=== PATIENT | male | born 1970 | race Caucasian/White ===

== ENCOUNTER 2020-07-05 00:59 | Emergency (ER) | payer OTHER, SELFPAY ==
[2020-07-05 01:00] VITALS: BP 147/101; PULSE 89; RESP 20; TEMP 35.5; O2SAT 99
--- NOTE | 2020-07-05 01:07 | ED.UPPEXIN ---
HPI - Extremity Injury (Upper) General Chief Complaint: Extremity Injury, Upper Stated Complaint: shoulder pain Time Seen by Provider: 07/05/20 01:08 Source: patient Mode of arrival: ambulatory Limitations: no limitations History of Present Illness HPI narrative: Previously well 49-year-old man comes in today complaining of lateral and posterior shoulder pain with AV duction that started yesterday. 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 Patient states the abduction elicits the pain. He denies any numbness or tingling nor did he have any falls or trauma. He has had no prior shoulder injury or surgeries. complaint: injury to: left and shoulder Onset (ago): day(s) (1) Other Extremity Injury: Left: shoulder Other injuries: none Handedness: right Place: work Severity: moderate Relieving factors: immobilization and rest Exacerbating factors: movement of extremity Context: injury Associated symptoms: denies other symptoms Related Data Home Medications Medication Instructions Recorded Confirmed Singulair 10 mg PO DAILY 07/05/20 07/05/20 atorvastatin 40 mg PO DAILY 07/05/20 07/05/20 Allergies Allergy/AdvReac Type Severity Reaction Status Date / Time atropine [From ] AdvReac Unknown Verified 07/05/20 01:10 hyoscyamine [From ] AdvReac Unknown Verified 07/05/20 01:10 phenobarbital [From ] AdvReac Unknown Verified 07/05/20 01:10 scopolamine [From ] AdvReac Unknown Verified 07/05/20 01:10 Review of Systems Review of Systems: All systems reviewed & are unremarkable except as noted in HPI and below Cardiovascular: Cardiovascular: Denies chest pain and Denies radiating jaw, neck or arm pain Respiratory: Respiratory: Denies cough and Denies dyspnea Gastrointestinal: Gastrointestinal: Denies nausea and Denies vomiting Musculoskeletal: Musculoskeletal: Denies back pain, Reports arthralgias and Denies joint swelling Integumentary/Breasts: Skin/Breast: Denies pruritus, Denies erythema and Denies rash Neurologic: Denies focal weakness and Denies numbness Allergic/Immunologic: Allergic/Immunologic: Denies lip swelling and Denies throat swelling [facility] Surgical History Surgical History (Updated 07/05/20 @ 01:18 by Avi Dexter MD) H/O umbilical hernia repair Social History Social History Smoking status: Never smoker Alcohol intake: current Alcohol use details: occasional Substance use: never Living arrangements: with family Exam Const: General: healthy appearing and alert Orientation/consciousness: patient oriented x3 Limitations: no limitations Other: mild acute distress. Eyes: Conjunctivae: conjunctivae normal Pupils: Equal, round and reactive pupils present EOM: EOMs intact bilaterally Resp: Effort & Inspection: normal respiratory effort and not labored Auscultation: clear to auscultation bilaterally, no rales, no rhonchi and no wheezes Cardio: Rate: regular rate Rhythm: regular rhythm Heart sounds: no murmurs Skin: General skin exam: normal color, no jaundice and no pallor Rashes: no rashes Neuro: General: patient oriented x3, moves all extremities and no focal motor deficits Speech: normal speech Gait exam (Neuro): Normal gait present Extrem: General: normal to inspection and no clubbing, cyanosis or edema Other: Mild tenderness palpation just under the lateral and posterior borders of the acromion on the left. There is no tenderness over the AC joint, the anterior shoulder joint,, the biceps or triceps insertions, or the clavicle. There is no abnormal contour or swelling. Patient is able to abduct to 135 degrees with pain mostly in the 45-135 degree range. There is pain with internal rotation. Psych: Appearance: grossly normal and well kempt Mental Status: mental status grossly normal Affect: normal affec
== END 2020-07-05 01:36 | disposition home or self-care (01) ==
PROVIDERS: Emergency Provider Emergency Medicine; PCP Family Medicine
DX: S46.002A Unspecified injury of muscle(s) and tendon(s) of the rotator cuff of left shoulder, initial encounter (principal)
CPT/HCPCS: 99283

== ENCOUNTER 2020-07-20 14:57 | Outpatient (RCR) | payer OTHER, SELFPAY ==
--- NOTE | 2020-07-20 15:44 | PTOPEVAL ---
Thank you for referring Leroy Olson to [facility].? The patient is scheduled to be seen for therapy? ____x/week for ___ weeks. Please review, sign, date and return this plan of care ELLIOTT. I agree with and certify that the following plan of care is medically necessary. Referring Physician Date Admitting Provider: Attending Provider: WALTER FONG Referring Provider: LINDY Outpatient Evaluation Start: 07/20/20 15:03 Freq: Status: Active Protocol: Document 07/20/20 15:05 ANABEL (Rec: 07/20/20 15:40 ANABEL [id number]) Therapy Assessment Status Assessment Status Assessment Status Evaluation Outpatient Past Medical History Cardiovascular History Hx Hypercholesterolemia Yes Gastrointestinal History Hx Hernia Yes: umbilical hernia repair 01/2020 Evaluation Information Problem Diagnosis L shoulder pain, RTC syndrome Onset 07/03/20 Additional Evaluation Detail quick dash = 29% functionally declined Subjective Information patient reports he injured his Query Text:As Reported By Patient/ L shoulder at work. he Family reports he was pushing down on a spring loaded bar. he reports then had to pull hard and felt a burning in the L shoulder. he reports he did not notice much that day, but reports the next day he began having increased trouble at work with using a sledge hammer and pulling objects. he reports he works at [employer]. he reports no prior injury to the L shoulder. he reports he has had xray and mri of the L shoulder. he reports negative for tearing on the imaging, but he reports he does have arthritis and inflamation. his MRI shows tendonosis of the L supraspinatus and subscapularis tendons. he reports he does not have much issues with the L shoulder currently, but reports he has been on light duty and not using his shoulder much. he reports slight tightness the past week with lifting his shoulder
[2020-08-19 10:05] VITALS: BP_SYST 128
--- NOTE | 2020-08-19 11:33 | PCPTNOTE ---
On 08/19/20, the student, [Sammie Lorenzo, SPT], provided care and completed [employer] documentation on this patient. I have reviewed the student's documentation and agree with the findings.
== END 2020-08-19 13:58 | disposition home or self-care (01) ==
LOC: CHSPT 14:57
DX: M75.102 Unspecified rotator cuff tear or rupture of left shoulder, not specified as traumatic (principal)
CPT/HCPCS: 97014; 97110; 97161; G0283

== ENCOUNTER 2021-08-13 05:38 | Emergency (ER) | payer BC, SELFPAY ==
[2021-08-13 05:42] VITALS: BP 167/106; PULSE 78; RESP 16; TEMP 36.4; O2SAT 97
--- NOTE | 2021-08-13 06:02 | ED.EXTPRO ---
HPI - Extremity Problem General Chief complaint: Extremity Problem,Nontraumatic Stated complaint: Ingrown Toenail Source: patient Mode of arrival: ambulatory Limitations: no limitations History of Present Illness HPI Narrative: this is a 51-year-old gentleman that presents with wound around his large great toe and the toe nail bed with crustiness and some tenderness with decreased range of motion secondary to swelling with no known injuries. Currently no fever chills. MD Complaint: extremity pain Onset (ago): day(s) Pain Consistency: constant Location: left Severity scale (1-10): 3 Quality: aching Radiation: none Relieving factors: nothing Exacerbating factors: nothing Related Data Home Medications Medication Instructions Recorded Confirmed atorvastatin 40 mg PO DAILY 08/13/21 08/13/21 montelukast 10 mg PO DAILY 08/13/21 08/13/21 Allergies Allergy/AdvReac Type Severity Reaction Status Date / Time atropine [From ] AdvReac Unknown Verified 08/13/21 05:46 hyoscyamine [From ] AdvReac Unknown Verified 08/13/21 05:46 phenobarbital [From ] AdvReac Unknown Verified 08/13/21 05:46 scopolamine [From ] AdvReac Unknown Verified 08/13/21 05:46 Review of Systems Review of Systems: All systems reviewed & are unremarkable except as noted in HPI and below PMFSH Past Medical History Medical History Patient denies medical problems Surgical History Surgical History H/O umbilical hernia repair Social History Social History Smoking status: Never smoker Alcohol intake: current Alcohol use details: occasional Substance use: never Exam Const: General: no acute distress and alert Orientation/consciousness: patient oriented x3 HENMT: Head: normal to inspection Eyes: Conjunctivae: conjunctivae normal Pupils: Equal, round and reactive pupils present Neck: Neck: normal visual inspection, no lymphadenopathy and no meningeal signs Chest: Chest palpation & inspection: normal inspection of the chest Resp: Effort & Inspection: normal respiratory effort Cardio: Rate: regular rate Rhythm: regular rhythm GI: GI Palp: Yes Soft to palpation Percussion: Yes normal to percussion : Male General Exam: Yes normal external exam Back/Spine/Pelvis: Back: no CVA tenderness Skin: Other: erythema and crustiness around the nailbed of the left great toe Neuro: General: patient oriented x3 Extrem: General: normal to inspection and no pedal edema Psych: Mental Status: mental status grossly normal Course Course Emergency Course: patient with some paronychia and mupirocin ointment was placed on the wound site and antibiotics and the patient's pharmacy Vital Signs Vital signs: Vital Signs Temperature 36.4 C 08/13/21 05:42 Pulse Rate 78 08/13/21 05:42 Respiratory Rate 16 08/13/21 05:42 Blood Pressure 167/106 H 08/13/21 05:42 Pulse Oximetry 97 08/13/21 05:42 Temperature 36.4 C 08/13/21 05:42 Pulse Rate 78 08/13/21 05:42 Respiratory Rate 16 08/13/21 05:42 Blood Pressure 167/106 H 08/13/21 05:42 Pulse Oximetry 97 08/13/21 05:42 Critical Care Time Critical Care Time Critical Care Time: No Discharge Plan Discharge Clinical Impression: Paronychia Patient Disposition: Home, Self-Care Condition: Stable Instructions: Antibiotic Form, Paronychia (ED) Additional Instructions: take medicine as prescribed and follow-up with primary care physician if symptoms persist or worsen. Prescriptions: New mupirocin 2 % ointment 1 applic topical TID 7 Days Qty: 22 RF: 0 sulfamethoxazole-trimethoprim [Bactrim DS] 800-160 mg tablet 1 tablet PO Q12H Qty: 20 RF: 0 No Action atorvastatin 40 mg tablet 40 mg PO DAILY RF: 0 montelukast 10 mg tablet 10 mg
[2021-08-13] MEDS: NEOMYCIN/POLYMYXIN/BACITRACIN OINTMENT PACKET 1 PACKET TOPICAL (06:11)
== END 2021-08-13 06:13 | disposition home or self-care (01) ==
PROVIDERS: Emergency Provider Emergency Medicine; PCP Family Medicine
DX: L03.032 Cellulitis of left toe (principal)
CPT/HCPCS: 99283; A9270

== ENCOUNTER 2021-11-19 14:16 | Outpatient (CLI) | payer BC, SELFPAY ==
[2021-11-19 15:13] LABS: SARS-CoV-2 Ag Negative (Negative)
[2021-11-19 15:27] LABS: SARS-CoV-2 RNA PCR Negative (Negative)
== END 2021-11-19 14:17 | disposition home or self-care (01) ==
LOC: CHSLAB 14:19
PROVIDERS: PCP Physician Assistant; Visit Provider Family Medicine
DX: Z20.822 Contact with and (suspected) exposure to COVID-19 (principal)
CPT/HCPCS: 87426; C9803; U0003; U0005

== ENCOUNTER 2024-08-07 11:32 | Outpatient (CLI) | payer BC, SELFPAY ==
--- NOTE | ~2024-08-07 | XR_ITS ---
AP and lateral views of the right hip Clinical history: Pain Findings: No acute fracture or dislocation is seen. Osseous alignment is anatomic. Right hip joint is intact. Soft tissues are unremarkable. Impression: No significant abnormality is seen. Reviewed, dictated and finalized at location M. Impression: No significant abnormality is seen.
--- OUTSIDE RECORDS SUMMARY | 2024-08-07 13:34 | XMS_ITS | Clinical Summary ---
Author Organization [facility] Address [address] [place] [id number] Care Team Providers Care Head Still Operator Name Role Phone Matt Bear MD Primary Care Provider [phone] Allergies Active Allergy Reactions Criticality Noted Date Comments Phenobarbital-Belladonna Alk Seizure 019 Medications montelukast 10 MG tablet Take 10 mg by mouth nightly at bedtime. Active atorvastatin 20 MG tablet Take 2 tablets (40 mg total) by mouth daily. 0 Active fluticasone propionate (FLONASE ALLERGY RELIEF) 50 MCG/ACT nasal spray Active levocetirizine (XYZAL ALLERGY 24HR) 5 MG tablet Take 1 tablet (5 mg total) by mouth. Active Albuterol-Budes onide 90-80 MCG/ACT Aerosol 08/03/19 25 Discontinu ed(Error) Active Problems Problem Noted Date Diagnosed Date Hyperlipidemia 02/14/2019 Blood pressure elevated without history of HTN 1 Decreased libido 02/14/2019 Umbilical hernia without obstruction or gangrene 02/14/2019 Encounters Date Type Department Care Team Description 08/02/2024 Travel from Last 3 Months Family History Medical History Relation Comments suspected prostate cancer Father suspec willie prostate cancer - testing in progress 02/15/19 Cancer Mother twice per opal ent Cancer Other significant hx o f cancer / related in his family Heart Disease Other Relation Status Comments Father Mother Other Alive Social History Tobacco Use Types Packs/Day Years Used Date Smoking Tobacco: Never Smokeless Tobacco: Never Alcohol Use Standard Drinks/Week Comments Yes 1.7 (1 standard drink = 0.6 oz p ure alcohol) AUDIT-C Answer Date Recorded Frequency of Alcohol Consumption Monthly or less 02/14/2019 Average Number of Drinks Not on file 019 Frequency of Binge Drinking Not on file 01/17 Sex and Gender Information Value Date Recorded Sex Assigned at Male 02/14/2019 10:40 AM CDT Legal Sex Male 2:40 PM CDT Gender Identity Male 02/14/2019 10:40 AM CDT Sexual Orientation Not on file Last Filed Vital Signs Vital Sign Reading Time Taken Comments Blood Pressure 128/84 06/25/2019 10:57 AM CDT Pulse 78 06/25/2019 10:57 AM CDT Temperature 35.8 C (96.5 F) 06/25/2019 10:57 AM CDT Respiratory Rate - - Oxygen Saturation - - Inhaled Oxygen Concentration - - Weight 83.9 kg (185 lb) 08/02/2024 12:04 PM CDT Height 167.6 cm (5' 6 ) 08/02/2024 12:04 PM CDT Body Mass Index 29.86 08/02/2024 12:04 PM CDT Plan of Treatment Upcoming Encounters Date Type Department Care Team (Late st Contact Info) Description 08/13/2024 10:18 AM CDT Hospital Encounter [address] [place] [address] Leroy Coello MD [facility] [place] [id number] 08/13/2024 10:18 AM CDT Anesthesia [address] [place] [address] Madhu Ponce CRNA [address] [place] [address] 08/13/2024 10:18 AM CDT - 08/13/2024 10:51 AM CDT Surgery [place] [address] [place] [address] Leroy [place] [phone] COLONOSCOPY Scheduled Procedures Name Priority Associated Diagnoses Date/Ti me COLONOSCOPY DIAGNOSTIC WITH/WITHOUT SPECIMEN BRUSH/WASH FAMILY HISTORY OF COLON CANCER 08/13/2024 10:18 AM CDT Health Maintenance Due Date Last Done Comments Colorectal Cancer Screening Colonoscopy (10 Years) 1969 Annual Physical 1972 Hepatitis C 07/10/1987 DTaP, Tdap and Td Vaccines ( 1 - Tdap) 1988 Hepatitis B Vaccines (1 of 3 - 19+ 3-dose series) 1988 Pneumococcal Vaccine: 50+ Ye ars (1 of 1 - PCV) 07/10/2019 Zoster Vaccines (1 of 2) 07/10/2019 COVID-19 Vaccine (1 - 2023-2 5 season) 2023 Meningococcal B Vaccine Aged Out No l onger eligible based on patient's age to complete this topic Meningococcal Vaccine Aged Out No song debra eligible based on patient's age to complete this topic RSV Immunizations Under 20 Months Aged Out No longer eligible based on patient's age to complete this topic Goals Goal Patient Goal Type Associated Problems Recent Progress Patient-Stated? Author Autogenerat ed Goal Care Plan Autogenerated Problem No Timoteo Alaniz RN Additional Health Concerns Active Problems Noted Date Diagnosed Date Autogenerated Problem 08/02/2024 Insurance [facility] Care Teams Head Still Operator Relationship Specialty Start Date End Date Matt Bear MD [address] [place] [phone] PCP - General FAMILY PRACTICE 02/12/19
== END 2024-08-07 11:33 | disposition home or self-care (01) ==
PROVIDERS: PCP Physician Assistant; Visit Provider Physician Assistant
DX: M25.551 Pain in right hip (principal)
CPT/HCPCS: 73502

== ENCOUNTER 2025-01-18 09:16 | Outpatient (CLI) | payer BC, SELFPAY ==
--- NOTE | ~2025-01-18 | XR_ITS ---
EXAMINATION: XR foot RT min 3V DATE: 01/18/2025 10:00 INDICATION: Medial right heel pain post twisting injury TECHNIQUE: Dorsoplantar, two oblique and lateral views of the right foot were obtained. COMPARISON: None. FINDINGS: Bone alignment is normal. No fracture. 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 Mild osteoarthritis at multiple interphalangeal joints and a few tarsometatarsal and and remaining metatarsophalangeal joints. Small plantar calcaneal spur. Small enthesopathic ossicle at the distal Achilles tendon. Soft tissues are unremarkable. IMPRESSION: 1. Degenerative skeletal changes in the right foot. No acute osseous abnormality. Reviewed, dictated and finalized at location A. IMPRESSION: 1. Degenerative skeletal changes in the right foot. No acute osseous abnormalit y.
== END 2025-01-18 09:17 | disposition home or self-care (01) ==
LOC: CHSIMG 09:20
PROVIDERS: PCP Physician Assistant; Visit Provider Nurse Practitioner
DX: M79.671 Pain in right foot (principal)
CPT/HCPCS: 73630

== ENCOUNTER 2025-02-20 10:36 | Outpatient (CLI) | payer BC, SELFPAY ==
--- NOTE | ~2025-02-20 | XR_ITS ---
EXAM/PROCEDURE: XR finger 1st LT min 2V, XR hand LT min 3V HISTORY: LEFT THUMB PAIN and left hand pain COMPARISON: None available. TECHNIQUE: 3 views of each FINDINGS: Mild osteoarthritic type change of the first carpometacarpal joint. Similar such findings in the DIP of the third digit. No fractures or dislocations. IMPRESSION: No acute findings. Reviewed, dictated and finalized at location A. DING APPRAISER IMPRESSION: No acute findings. IMPRESSION: No acute findings.
--- OUTSIDE RECORDS SUMMARY | 2025-02-20 18:45 | XMS_ITS | Clinical Summary ---
Author Organization [facility] Address [address] [place] [id number] Care Team Providers Care Collect On Delivery Clerk Name Role Phone Blaine Reeder Primary Care Provider [phone] Allergies Active Allergy Reactions Criticality Noted Date Comments Phenobarbital-Belladonna Alk Seizure 019 Medications montelukast 10 MG tablet Take 1 tablet (10 mg total) by mouth nightly at bedtime. Active atorvastatin 20 MG tablet Take 2 tablets (40 mg total) by mouth daily. 05/20/2019 Active fluticasone propionate (FLONASE ALLERGY RELIEF) 50 MCG/ACT nasal spray Active levocetirizine (XYZAL ALLERGY 24HR) 5 MG tablet Take 1 tablet (5 mg total) by mouth. Active Active Problems Problem Noted Date Diagnosed Date Hyperlipidemia 02/14/2019 Blood pressure elevated without history of HTN 1 Decreased libido 02/14/2019 Umbilical hernia without obstruction or gangrene 02/14/2019 Family History Medical History Relation Comments suspected [...] Sign Reading Time Taken Comments Blood Pressure 141/91 08/13/2024 9:45 AM CDT Pulse 68 08/13/2024 9:45 AM CDT Temperature 36.1 C (97 F) 08/13/2024 9:45 AM CDT Respiratory Rate 18 08/13/2024 9:45 AM CDT Oxygen Saturation 98% 08/13/2024 9:45 AM CDT Inhaled Oxygen Concentration - - Weight 83.9 kg (185 lb) 08/02/2024 12:04 PM CDT Height 167.6 cm (5' 6) 08/02/2024 12:04 PM CDT Body Mass Index 29.86 08/02/2024 12:04 PM CDT Plan of Treatment Health Maintenance Due Date Last Done Comments Annual Physical 1972 Hepatitis C 07/10/1987 DTaP, Tdap and Td Vaccines ( 1 - Tdap) 1988 Hepatitis B Vaccines (1 of 3 - 19+ 3-dose series) 1988 Pneumococcal Vaccine: 50+ Years (1 of 1 - PCV) 07/10/2019 Zoster Vaccines (1 of 2) 07/10/2019 COVID-19 Vaccine ( - 2024-2 6 season) 2024 Influenza Adult (#1) 2025 Colorectal Cancer Screening Colonoscopy (10 Years) 08/13/2034 08/13/2024, 08/13/2024 Hepatitis A Vaccines Aged Out No long er eligible based on patient's age to complete this topic Meningococcal B Vaccine Aged Out No l onger eligible based on patient's age to complete this topic Meningococcal Vaccine Aged Out No song debra eligible based on patient's age to complete this topic RSV Immunizations Under 20 Months Aged Out No longer eligible b ased on patient's age to complete this topic Procedures Procedure Name Priority Date/Time Associated Diagnosis Comments COLONOSCOPY 08/13/2024 6:47 AM CDT from Last 3 Months or Most Recently Relevant to Health Maintenance Results * Colonoscopy (08/13/2024 6:47 AM CDT) Leroy Coello MD GI PROCEDURE ORDERABLES Final Result from Last 3 Months or Most Recently Relevant to Health Maintenance Insurance [facility] Care Teams Collect On Delivery Clerk Relationship Specialty Start Date End Date Blaine Reeder PA [address] [place] [phone] PCP - General PHYSICIAN INSURANCE PREMIUM AUDITOR 08/09/24
== END 2025-02-20 10:37 | disposition home or self-care (01) ==
LOC: CHSIMG 10:39
PROVIDERS: PCP Physician Assistant; Visit Provider Physician Assistant
DX: M79.642 Pain in left hand (principal); M79.645 Pain in left finger(s)
CPT/HCPCS: 73130; 73140